=== PATIENT | female | born 2000 | race Caucasian/White ===

== ENCOUNTER 2023-04-14 22:42 | Observation (INO) ==
[2023-04-14 23:15] LABS: Basophils # (auto) 0.03 K/uL (0.00-0.20); Basophils % (auto) 0.2 %; Eosinophils # (auto) 0.01 K/uL (0.00-0.50); Eosinophils % (auto) 0.1 %; Hemoglobin 11.3 g/dl (12.0-16.0); Immature Granulocytes # (auto) 0.07 K/uL (0.01-0.20); Immature Granulocytes % (auto) 0.4 %; Lymphocytes # (auto) 1.78 K/uL (1.20-3.40); Lymphocytes % (auto) 11.4 %; Mean Corpuscular Hemoglobin 28.5 pg (25.0-34.0); Mean Corpuscular Hgb Conc 33.2 g/dL (32.0-36.0); Mean Corpuscular Volume 85.9 fL (80.0-100.0); Mean Platelet Volume 9.7 fL (9.4-12.4); Monocytes # (auto) 0.42 K/uL (0.11-0.59); Monocytes % (auto) 2.7 %; Neutrophils # (auto) 13.28 K/uL (1.40-6.50); Neutrophils % (auto) 85.2 %; Platelet Count 295 K/uL (130-400); Red Blood Count 3.96 M/uL (4.20-5.40); White Blood Count 15.59 K/ul (4.8-10.8)
[2023-04-14 23:24] LABS: Pregnancy Test, Serum Positive (Negative)
[2023-04-14 23:26] LABS: Albumin Globulin Ratio 1.3 (0.9-2); Albumin Level 3.8 gm/dl (3.4-5.0); BUN Creatinine Ratio 16.9 (10-20); Bilirubin,Total 0.4 mg/dl (0.2-1.0); Calcium 8.7 mg/dl (8.6-10.3); Creatinine Clr Calc Pharmacy 147.1 ml/min; Est GFR (African American) 114.4 ml/min; Est GFR (Non-African American) 98.7 ml/min; Potassium 4.8 mmol/L (3.5-5.1); Total Protein 6.8 gm/dl (6.0-8.3)
[2023-04-14] MEDS ORDERED: HYDROmorphone INJ 0.5 MG/0.5 ML SYR IV STA (23:50)
[2023-04-14] MEDS ORDERED: ONDANSETRON INJ 2 MG/ML 2 ML VIAL IV STA (23:50)
[2023-04-15] MEDS ORDERED: HYDROmorphone INJ 0.5 MG/0.5 ML SYR IV STA (00:17)
--- NOTE | 2023-04-15 00:17 | OB/GYN Consultation ---
Date of Consultation April 15, 2023 Assessment & Plan (1) Hemoperitoneum: (2) of unknown anatomic location: Plan This pt with early and hematoperitoneum either from ruptured ectopic or hemorrhagic cyst. I was present during u/s and significant blood in abdomen but unclear ongoing as cannot see extravasation by doppler. Left ovary with cystic structure measuring 3 x 3cm, no contents and no blood supply suggestive of ectopic. Our hcg on repeat here 2290. Desired . Discussed with patient OR now to evacuate blood, evaluate for ongoing bleeding, could disrupt normal and/or exposure to general anesthesia vs. trending sx and hgb and see evaluate ongoing. She is reluctant to proceed to surgery. She is tolerating her pain with pain meds. She does not want to go to OR if she doesn't need to but expressed need for OR may be acute/emergency. I am awaiting repeat hgb now by istat and will continue to discuss with pt. Keep npo, ivf, pain meds. History of Present Illness Reason for Consultation: , pelvic pain, hematoperitoneum Requesting Physician: Dr. Vázquez History of Present Illness 22yo with cc of acute onset pelvic pain this pm and +HPT. Patient presented to [facility] ER at about 7pm after acute onset pelvic pain, rectal pressure at 6pm. She did have a known positive test and quant done at their facility as well as u/s of pelvic showing no iup, right ovary not seen, left ovary enlarged with evidence of echogenic fluid in [place]. I was initially called by the ER physician and ultimately told that he stated the HCG at their facility was 20,000. An ER to ER transfer was arranged and on her arrival here, my review of records showed quant was 1894. I did also review the US report, which mentioned possible ruptured hemorrhagic cyst. Patient is in pain in ER bed, notes pain med given at other ER has worn off and feels like she could pass out. Has not been up to void but does feel pain with movement. Denies cp or sob. No n/v. Asking to eat/drink. PMH: hypothyroid PSH: neg OBH: x 1 2020 GYNH: nl pap 2022. no stds. Allergies Allergy/AdvReac Type Severity Reaction Status Date / Time nickel Allergy Intermediate Hives Verified 01/16/23 15:57 Sulfa (Sulfonamide Allergy Intermediate Hives Verified 01/16/23 15:57 Antibiotics) peanuts Allergy Severe Anaphylaxis Uncoded 01/16/23 15:57 Home Medications Medication Instructions Recorded Confirmed Type levothyroxine [Synthroid] 125 mcg PO DAILY 07/23/22 01/16/23 History montelukast [Singulair] 10 mg PO DAILY 07/23/22 01/16/23 History prenat.vits,shravan,isj-igye-elrml PO 07/23/22 01/16/23 History Patient History Surgical History (Updated 04/15/23 @ 00:19 by Alyssa Llanes MD, FACOG) S/P tonsillectomy and adenoidectomy S/P wisdom tooth extraction Family History (Updated 07/23/22 @ 13:20 by Anusha Win LPN) Grandfather (Maternal) Myocardial infarction Grandfather (Paternal) Prostate cancer Denies family history of Ovarian cancer Breast cancer Colorectal cancer Social History (Updated 07/23/22 @ 13:20 by Anusha Win LPN) Smoking Status: Never smoker Second Hand Exposure: No; Do You Dip or Chew Tobacco: No; Hx Alcohol Use: Yes Alcohol type: beer and wine Alcohol Intake Frequency: Monthly or Less Hx Substance Use: No Preferred Language: Macanese marital status: Current Living Situation: Spouse How many Children do You have: 1 Feels Safe at Home: Yes Review of Systems Constitutional: as per Subjective / HPI Physical Exam Constitutional: WD/WN, vitals as above Gastrointestinal (Abdomen): Percussion/Palpation: + abdomen tender, + guarding and abdomen soft Neurologic: grossly normal Psychiatric: A+Ox3, euthymic affect Genitourinary: no CVA tenderness Results & Data Vital Signs (Past 12 Hours) Vital Signs Temp Pulse Pulse Resp BP BP Pulse Ox 04/14/23 22:52 109 H 04/14/23 22:49 98.4 F 107 H 20 143/92 H 97 04/14/23 22:49 98.4 F 105 H 20 143/92 H 96 O2 Del Method 04/14/23 22:52 04/14/23 22:49 Room Air 04/14/23 22:49 Room Air PG Care Time/CCT Total # of Minutes Spent Total Time Spent with Patient: Total time spent is greater than 50% in coordination of care (as documented) at patient's floor/unit and/or counseling patient: Coding Level of Care Code 19390 OFFICE CONSULT LVL Diagnoses Hemoperitoneum K66.1 of unknown anatomic location O36.80X0
--- NOTE | 2023-04-15 00:51 | Emergency Department Note ---
Impression & Plan Hemoperitoneum, of unknown anatomic location to the OR with Dr. Llanes ED Provider Note NAME: KENNEDY ANTONIO AGE: 22 SEX: Female INFORMANT: Patient ED PROVIDER(S): Brittany Vázquez DO CHIEF COMPLAINT: Abdominal pain PLAN: Disposition: Admission by Dr. Llanes-SHELTER MONITOR - To the OR MEDICAL DECISION MAKING: This is a 22-year-old female patient who was transferred to this emergency department from [facility] for evaluation by OB for ectopic . This is the patient's second . Her last menstrual period started on 03/19/2023. Her 2 menstrual cycles prior to that were irregular. The ultrasound that was performed at [facility] showed moderate hemoperitoneum and there was concern for ectopic . It was reported to us that her quantitative hCG was greater than 20,000. She was excepted here in the emergency department and will be evaluated by weatherization installer.. Upon arrival here in the ER, the patient was hemodynamically stable. In reviewing her records, it was noted that her quantitative level was only 1864. We performed our own stat level as well as her own stat ultrasound. We question whether this could be hemorrhagic cyst versus ectopic . Regardless, the patient had moderate to significant hemoperitoneum and her hemoglobin level had dropped. Ultimately the decision was to take the patient to the OR by Dr. Llanes. Patient remained hemodynamically stable. She received 2 doses of IV Dilaudid for pain management. She was typed and screened for the OR. Care/management discussed with: Dr. Llanes-SHELTER MONITOR; I discussed the ultrasound results with the stat rad radiologist Triage Nursing notes: Reviewed and agree with them. Vital Signs: reviewed and remarkable for tachycardia Additional History obtained from: and parents who are at the bedside Prior/ Outside/ External records reviewed: Documentation from the ER visit at [facility] was reviewed-ER note, labs, ultrasound report Differential Diagnosis: Ruptured ectopic , ruptured ovarian cyst, anemia Diagnostics, independently interpreted by me: Cardiac Monitoring: Sinus tachycardia at a rate of 102 Imaging studies: Pelvic ultrasound: As per stat read HPI: 22 year old Female arrives for evaluation of ectopic . Patient developed severe pelvic pain at 6 PM this evening which she described as " lightening crotch." The patient initially went to [facility] where she was evaluated and diagnosed with an ectopic . Arrangements were made to have the patient transferred to our emergency department for weatherization installer evaluation and surgical intervention. Of note, the patient suffered a syncopal event while at [place] following her pelvic ultrasound. The patient's hemoglobin at [place] was 12.4. They did note that her blood type was O+. When arrangements were made for transfer, the transferring physician noted the patient's quantitative hCG was greater than 20,000 and therefore the patient's hemoperitoneum in of unknown anatomic location was concerning for an ectopic. However, upon arrival here in the emergency department in reviewing the records, the quantitative hCG from [place] was 1864. PAST MEDICAL history: Hypothyroidism; asthma PAST SURGICAL HISTORY: See Below, SOCIAL HISTORY: Patient is a wound care nurse; she lives with her and child, HOME MEDICATIONS: See list ALLERGIES: See list VITALS: See Below PHYSICAL EXAMINATION: HEENT: Head - normocephalic and atraumatic Pupils are equal, round, and reactive to light. Extraocular eye muscles are intact, and sclera are anicteric. Nose - moist nasal mucosa without discharge. Mouth - moist buccal mucosa. Oropharynx is nonerythematous and there is no tonsillar exudate or edema noted. Neck: Supple; no cervical lymphadenopathy and thyromegaly Heart: Regular rate and rhythm. There is a normal S1 and S2 with no murmurs, clicks, or gallops appreciated. Lungs: Clear to auscultation bilaterally with no wheezes, rales, or rhonchi. Abdomen: Soft, diffuse tenderness with palpation and mildly distended, with good bowel sounds. There are no palpable pulsatile masses or hepatosplenomegaly. There is no guarding, rigidity, or rebound noted. Extremities: No evidence of cyanosis, clubbing, or edema. There are easily palpable peripheral pulses. Skin: Pale, warm and dry with good turgor and no rashes. Emergency department treatment: IV Dilaudid x 2 Emergency department course: The patient was evaluated in room B-11. A complete history and physical was performed. Records from [place] were reviewed. Laboratory studies were drawn as above. Patient's hemoglobin dropped to 11.3 initially here in the emergency department. I discussed the case with Dr. Llanes and she requested the patient have a stat quantitative hCG and an ultrasound here. Patient was given a dose of IV Dilaudid for her pain. She evaluated the patient here and sent her for ultrasound. The quantitative value here was 2294. In reviewing the records, it was noted the patient's blood type was O+. She did have a mild leukocytosis with a white count of 15.5 and her glucose was 151. Upon returning from radiology, She was medicated with a second dose of IV Dilaudid for pain. The decision was made that the patient will go to the OR with Dr. Llanes. Past Med/Surg History Surgical History (Updated 04/15/23 @ 05:12 by Alyssa Llanes MD, FACOG) History of unilateral salpingectomy right, ectopic S/P tonsillectomy and adenoidectomy S/P wisdom tooth extraction Family History (Updated 07/23/22 @ 13:20 by Anusha Win LPN) Grandfather (Maternal) Myocardial infarction Grandfather (Paternal) Prostate cancer Denies family history of Ovarian cancer Breast cancer Colorectal cancer Social History (Updated 07/23/22 @ 13:20 by Anusha Win LPN) Smoking Status: Never smoker Second Hand Exposure: No; Do You Dip or Chew Tobacco: No; Hx Alcohol Use: Yes Alcohol type: beer and wine Alcohol Intake Frequency: Monthly or Less Hx Substance Use: No Preferred Language: Nepalese marital status: Current Living Situation: Spouse How many Children do You have: 1 Feels Safe at Home: Yes Allergies Allergies Allergy/AdvReac Type Severity Reaction Status Date / Time peanut Allergy Severe Anaphylaxis Verified 04/15/23 02:05 nickel Allergy Intermediate Hives Verified 01/16/23 15:57 Sulfa (Sulfonamide Allergy Intermediate Hives Verified 01/16/23 15:57 Antibiotics) Home Meds Home Medications Medication Instructions Recorded Confirmed levothyroxine [Synthroid] 125 mcg PO DAILY 07/23/22 01/16/23 montelukast [Singulair] 10 mg PO DAILY 07/23/22 01/16/23 prenat.vits,shravan,[id number] PO 07/23/22 01/16/23 Previous Rx's Medication Instructions Recorded oxycodone-acetaminophen 5 mg-325 1 tab PO Q4H PRN pain #7 tabs 04/15/23 mg tablet (Percocet) Results & Data (ED) Vital Signs Vital Signs - 24 hr 04/14/23 22:49 04/14/23 22:49 04/14/23 22:52 Temperature 36.9 C 36.9 C Temperature Source Oral Oral Pulse Rate 105 H 109 H Pulse Rate [Finger] 107 H Pulse Rhythm Regular Pulse Rhythm [Finger] Regular Pulse Strength Normal Pulse Strength [Finger] Normal Respiratory Rate 20 20 Respiratory Effort / Characteristics Non-Labored Spontaneous Non-Labored Spontaneous Respiratory Depth Normal Normal Respiratory Pattern Blood Pressure 143/92 H Blood Pressure [Right Arm] 143/92 H Blood Pressure Mean 109 Blood Pressure Mean [Right Arm] 109 Blood Pressure Position Sitting Blood Pressure Position [Right Arm] Sitting Pulse Oximetry 96 97 Oxygen Delivery Method Room Air Room Air Sepsis Recent Fever Within 48 Hours No Sepsis New/Unexplained Change in Mental Status N/A Sepsis Action Taken by Nursing No Action Required 04/15/23 00:11 04/15/23 02:01 04/15/23 02:02 Temperature Temperature Source Pulse Rate Pulse Rate [Finger] 100 H 120 H 120 H Pulse Rhythm Pulse Rhythm [Finger] Pulse Strength Pulse Strength [Finger] Respiratory Rate 33 H 17 17 Respiratory Effort / Characteristics Non-Labored Spontaneous Non-Labored Spontaneous Respiratory Depth Normal Normal Respiratory Pattern Regular Regular Blood Pressure Blood Pressure [Right Arm] 103/72 139/76 139/76 Blood Pressure Mean Blood Pressure Mean [Right Arm] 82 97 97 Blood Pressure Position Blood Pressure Position [Right Arm] Pulse Oximetry 97 98 98 Oxygen Delivery Method Room Air Room Air Room Air Sepsis Recent Fever Within 48 Hours Sepsis New/Unexplained Change in Mental Status Sepsis Action Taken by Nursing 04/15/23 04:35 04/15/23 04:45 04/15/23 04:55 Temperature 36.1 C L 36.2 C L 36.2 C L Temperature Source Temporal Artery Scan Temporal Artery Scan Temporal Artery Scan Pulse Rate Pulse Rate [Finger] 100 H 91 H 93 H Pulse Rhythm Pulse Rhythm [Finger] Pulse Strength Pulse Strength [Finger] Respiratory Rate 18 16 16 Respiratory Effort / Characteristics Respiratory Depth Respiratory Pattern Blood Pressure Blood Pressure [Right Arm] 128/79 120/79 103/68 Blood Pressure Mean Blood Pressure Mean [Right Arm] 95 92 79 Blood Pressure Position Blood Pressure Position [Right Arm] Lying Lying Lying Pulse Oximetry 100 99 99 Oxygen Delivery Method Room Air Room Air Room Air Sepsis Recent Fever Within 48 Hours Sepsis New/Unexplained Change in Mental Status Sepsis Action Taken by Nursing 04/15/23 05:05 Temperature 36.2 C L Temperature Source Temporal Artery Scan Pulse Rate Pulse Rate [Finger] 92 H Pulse Rhythm Pulse Rhythm [Finger] Pulse Strength Pulse Strength [Finger] Respiratory Rate 16 Respiratory Effort / Characteristics Respiratory Depth Respiratory Pattern Blood Pressure Blood Pressure [Right Arm] 109/67 Blood Pressure Mean Blood Pressure Mean [Right Arm] 81 Blood Pressure Position Blood Pressure Position [Right Arm] Lying Pulse Oximetry 99 Oxygen Delivery Method Room Air Sepsis Recent Fever Within 48 Hours Sepsis New/Unexplained Change in Mental Status Sepsis Action Taken by Nursing Laboratory Data 04/14/23 22:59 04/14/23 22:59 Lab Results 04/14/23 04/15/23 Range/Units 22:59 01:26 WBC 15.59 H (4.8-10.8) K/ul RBC 3.96 L (4.20-5.40) M/uL Hgb 11.3 L (12.0-16.0) g/dl Hct 34.0 L (37.0-47.0) % MCV 85.9 (80.0-100.0) fL MCH 28.5 (25.0-34.0) pg MCHC 33.2 (32.0-36.0) g/dL RDW Std Deviation 38.0 (36.4-46.3) fL RDW Coeff of Angela 12.0 (11.5-14.5) % Plt Count 295 (130-400) K/uL MPV 9.7 (9.4-12.4) fL Immature Gran % (Auto) 0.4 % Neut % (Auto) 85.2 % Lymph % (Auto) 11.4 % [place] % (Auto) 2.7 % Eos % (Auto) 0.1 % Baso % (Auto) 0.2 % Neut # (Auto) 13.28 H (1.40-6.50) K/uL Lymph # (Auto) 1.78 (1.20-3.40) K/uL [place] # (Auto) 0.42 (0.11-0.59) K/uL Eos # (Auto) 0.01 (0.00-0.50) K/uL Baso # (Auto) 0.03 (0.00-0.20) K/uL Immature Gran # (Auto) 0.07 (0.01-0.20) K/uL Sodium 136 (136-145) mmol/L Potassium 4.8 (3.5-5.1) mmol/L Chloride 107 (98-107) mmol/L Carbon Dioxide 22 (21-32) mmol/L Anion Gap 7 (3-11) BUN 14 (6-23) mg/dl Creatinine 0.83 (0.6-1.2) mg/dl Est Cr Clr Drug Dosing 147.1 ml/min Est GFR ( Amer) 114.4 ml/min Est GFR (Non-Af Amer) 98.7 ml/min BUN/Creatinine Ratio 16.9 (10-20) Glucose 151 H (70-99(Fasting)) mg/dl Calcium 8.7 (8.6-10.3) mg/dl Total Bilirubin 0.4 (0.2-1.0) mg/dl AST 13 (13-39) U/L ALT 17 (7-52) U/L Alkaline Phosphatase 67 (34-104) U/L Total Protein 6.8 (6.0-8.3) gm/dl Albumin 3.8 (3.4-5.0) gm/dl Globulin 3.0 (2.5-4.0) gm/dl Albumin/Globulin Ratio 1.3 (0.9-2) Lipase 9 L (11-82) U/L HCG, Qual Positive (Negative) HCG, Quant 2290 mIU/ml Urine Color Dark Yellow Urine Appearance Turbid A (Clear) Urine pH 5.5 (4.5-7.5) Ur Specific [place] 1.036 H (1.000-1.030) Urine Protein 1+ H (Negative) Urine Glucose (UA) Negative (Negative) Urine Ketones Trace H (Negative) Urine Blood 2+ H (Negative) Urine Nitrite Negative (Negative) Urine Bilirubin 1+ H (Negative) Urine Urobilinogen Negative (Negative) Ur Leukocyte Esterase Trace H (Negative) Urine WBC (Auto) 10-30 H (0-5) /hpf Urine RBC (Auto) 5-10 H (0-4) /hpf U Hyaline Cast (Auto) 0 (0-5) /lpf U Epithel Cells (Auto) >30 H (0-5) /lpf Urine Bacteria (Auto) 1+ H (Negative) Ur Renal Epithelial Cell Not Reportable Urine Mucus Present A (None Prsent) Blood Type O Positive Antibody Screen NEGATIVE Administered Medications Fentanyl Citrate (Fentanyl Citrate Pf 100 Mcg/2 Ml Vial) 50 mcg IV Q5M PRN PRN Reason: PACU Use Only-Pain Stop: 04/15/23 10:43 Last Admin: 04/15/23 05:27 Dose: 50 mcg Documented By: VK Discontinued Medications Bupivacaine HCl (Bupivacaine 0.5 % 5 Mg/1 Ml Mpf 30ml Vial) Confirm Administered Dose 30 ml .ROUTE .STK-MED ONE Stop: 04/15/23 02:26 Last Admin: 04/15/23 04:27 Dose: 10 ml Documented By: SMP Hydromorphone HCl (Hydromorphone Inj 0.5 Mg/0.5 Ml Syr) 0.5 mg IV NOW STA Stop: 04/14/23 23:51 Last Admin: 04/14/23 23:56 Dose: 0.5 mg Documented By: MED Hydromorphone HCl (Hydromorphone Inj 0.5 Mg/0.5 Ml Syr) 0.5 mg IV NOW STA Stop: 04/15/23 00:18 Last Admin: 04/15/23 00:19 Dose: 0.5 mg Documented By: MED Ondansetron HCl (Ondansetron Inj 2 Mg/Ml 2 Ml Vial) 4 mg IV NOW STA Stop: 04/14/23 23:51 Last Admin: 04/14/23 23:53 Dose: 4 mg Documented By: MED Imaging Data Radiologist's Impression: Ultrasound 04/14/23 23:47 CR Exam(s): US OB 1st TRIMESTER EXAM: US First Trimester , Transabdominal and Transvaginal CLINICAL HISTORY: pelvic pain, +HCG 1894. TECHNIQUE: Real-time transabdominal and transvaginal obstetrical ultrasound of the maternal pelvis and a first trimester with image documentation. Transvaginal imaging was used for better evaluation of the fetus and adnexa. COMPARISON: No relevant prior studies available. FINDINGS: Gestation: The endometrial stripe measures only 4.6 mm. No intrauterine gestation identified. Placenta/amniotic fluid: Cannot be adequately evaluated due to the early gestational age. Uterus/cervix: The cervix is closed. No myometrial mass. Ovaries: The right ovary measures 2.6 x 2.5 x 1.8 cm. The left ovary measures 4.8 x 4.3 x 3.4 cm with a complex cyst measuring 3.4 x 3.9 x 3.1 cm with low-level echoes and septations. Free fluid: Moderate complex fluid in the pelvis with echogenic components. There is also free fluid in Morison's pouch. IMPRESSION: 1. The endometrial stripe measures only 4.6 mm. No intrauterine gestation identified. This may be related to very early gestational status given reported beta-hCG levels. 2. Moderate complex fluid in the pelvis with echogenic components. There is also free fluid in Morison's pouch. Findings are concerning for mild to moderate hemoperitoneum. Recommend gynecologic consultation rather than additional imaging if there is concern for impending hemodynamic instability. 3. The left ovary measures 4.8 x 4.3 x 3.4 cm with a complex cyst measuring 3.4 x 3.9 x 3.1 cm with low-level echoes and septations. Findings are most consistent with a hemorrhagic cyst. Communications: Call Doctor Above results Electronically signed by: Tong De La Rosa MD 04/15/23 01:43 AM Discharge Plan Visit Data Chief Complaint: Pelvic Pain Stated Complaint: Ruptured Ectopic ED Provider: Brittany Vázquez Discharge Problem: Hemoperitoneum, of unknown anatomic location Patient Disposition: Admitted As Inpatient Discharge Instructions Interventions: ED Discharge Assessment Last Done: 04/15/23 02:25
[2023-04-15 01:40] LABS: Appearance Urine Turbid (Clear); Bacteria Urine Automated 1+ (Negative); Blood Urine 2+ (Negative); Color Urine Dark Yellow; Epithelial Cell Urine Auto >30 /lpf (0-5); Glucose Urine UA Negative (Negative); Ketones Urine Trace (Negative); Leukocyte Esterase Urine Trace (Negative); Nitrite Urine Negative (Negative); Protein Urine 1+ (Negative); Specific Gravity Urine 1.036 (1.000-1.030); Urobilinogen Urine Negative (Negative); pH Urine 5.5 (4.5-7.5)
[2023-04-15 01:42] LABS: Bilirubin Urine 1+ (Negative)
--- NOTE | 2023-04-15 01:45 | Ultrasound Report ---
Exam(s): US OB 1st TRIMESTER EXAM: US First Trimester , Transabdominal and Transvaginal CLINICAL HISTORY: pelvic pain, +HCG 1894. TECHNIQUE: Real-time transabdominal and transvaginal obstetrical ultrasound of the maternal pelvis and a first trimester with image documentation. Transvaginal imaging was used for better evaluation of the fetus and adnexa. COMPARISON: No relevant prior studies available. FINDINGS: Gestation: The endometrial stripe measures only 4.6 mm. No intrauterine gestation identified. Placenta/amniotic fluid: Cannot be adequately evaluated due to the early gestational age. Uterus/cervix: The cervix is closed. No myometrial mass. Ovaries: The right ovary measures 2.6 x 2.5 x 1.8 cm. The left ovary measures 4.8 x 4.3 x 3.4 cm with a complex cyst measuring 3.4 x 3.9 x 3.1 cm with low-level echoes and septations. Free fluid: Moderate complex fluid in the pelvis with echogenic components. There is also free fluid in Morison's pouch. IMPRESSION: 1. The endometrial stripe measures only 4.6 mm. No intrauterine gestation identified. This may be related to very early gestational status given reported beta-hCG levels. 2. Moderate complex fluid in the pelvis with echogenic components. There is also free fluid in Morison's pouch. Findings are concerning for mild to moderate hemoperitoneum. Recommend gynecologic consultation rather than additional imaging if there is concern for impending hemodynamic instability. 3. The left ovary measures 4.8 x 4.3 x 3.4 cm with a complex cyst measuring 3.4 x 3.9 x 3.1 cm with low-level echoes and septations. Findings are most consistent with a hemorrhagic cyst. Communications: Call Doctor Above results Electronically signed by: Tong De La Rosa MD 04/15/23 01:43 AM
[2023-04-15 01:50] LABS: Cast Urine Automated 0 /lpf (0-5); Mucus Urine Present (None Prsent)
--- NOTE | 2023-04-15 02:07 | Gynecologic Progress Note ---
Date of Service April 15, 2023 Assessment & Plan (1) Acute anemia: (2) Hemoperitoneum: (3) of unknown anatomic location: Plan given decreased hemoglobin and obvious hematoperitoneum, rec to pt proceeding with lpsc evaluation and evacuation of hemoperitoneum. Possible need to manage bleeding of adnexal structures including removal of structures that can effect future fertility. Possible leaving of structures that ultimately need to come out like true ectopic . But for now need to manage possible ongoing bleeding as her hemoglobin is decreasing acutely. They agree and are ready to proceed, she is aware she may lose iup if structures disrupted and/or early surgery. Option to allow ongoing bleeding unmanaged is also not tenable. Risks, alternatives and complications of procedure reviewed with patient and include but are not limited to bleeding, infection, anesthesia, injury to bowel, bladder, vessels, nerves, ureters, delayed complication, persistent ectopic with further need for treatment or procedures, loss of normal , loss or decrease of fertility. Patient desires to proceed and consent signed. Nurse supervisor laboratory animal facility and anesthesia aware of plan and OR called. Plan operative LPSC, evacuation of hemoperitoneum and possible removal of adnexal stuctures. Subjective pt still with pain, mostly with movement. US reviewed again with her and partner and mother. istat now about 2gm lower in about 2hr. Review of Systems Constitutional: as per Subjective / HPI Physical Exam Constitutional: WD/WN, vitals as above Results & Data Vital Signs (Past 12 Hours) Vital Signs Temp Pulse Pulse Resp BP BP Pulse Ox 04/15/23 00:11 100 H 33 H 103/72 97 04/14/23 22:52 109 H 04/14/23 22:49 98.4 F 107 H 20 143/92 H 97 04/14/23 22:49 98.4 F 105 H 20 143/92 H 96 O2 Del Method 04/15/23 00:11 Room Air 04/14/23 22:52 04/14/23 22:49 Room Air 04/14/23 22:49 Room Air PG Care Time/CCT Total # of Minutes Spent Total Time Spent with Patient: Total time spent is greater than 50% in coordination of care (as documented) at patient's floor/unit and/or counseling patient: Coding Level of Care Code 80987 ER DEPT VISIT HIGH LVL 5 (57 - DECISION FOR SURGERY) Diagnoses Acute anemia D64.9 Hemoperitoneum K66.1 of unknown anatomic location O36.80X0
[2023-04-15] MEDS ORDERED: BUPIVACAINE 0.5 % 5 MG/1 ML MPF 30ML VIAL ONE (02:25)
[2023-04-15] MEDS ORDERED: fentaNYL citrate PF 100 MCG/2 ML VIAL ONE ×2 (02:29→05:24)
[2023-04-15] MEDS ORDERED: PROPOFOL IV EMULSION 10 MG/ML 20 ML VIAL IV ONE (02:30)
[2023-04-15] MEDS ORDERED: SUCCINYLCHOLINE CHLORIDE 20 MG/ML 10 ML VIAL IV ONE (02:30)
[2023-04-15] MEDS ORDERED: ROCURONIUM BROMIDE 10 MG/ML 5 ML VIAL IV ONE (02:30)
[2023-04-15] MEDS ORDERED: LIDOCAINE 2% 2 ML VIAL/AMP(20MG/ML) INFIL ONE (02:30)
[2023-04-15] MEDS ORDERED: ONDANSETRON INJ 2 MG/ML 2 ML VIAL IV PRN (02:43)
[2023-04-15] MEDS ORDERED: PROMETHAZINE HCL 6.25 MG in SODIUM CHLORIDE 0.9% 50 ML IV PRN (02:43)
[2023-04-15] MEDS ORDERED: ePHEDrine sulfate 50 MG/ML AMP IV PRN (02:43)
[2023-04-15] MEDS ORDERED: ATROPINE SULFATE 0.1 MG/ML 10ML SYR IV PRN (02:43)
[2023-04-15] MEDS ORDERED: fentaNYL citrate PF 100 MCG/2 ML VIAL IV PRN (02:43)
--- NOTE | 2023-04-15 02:43 | Anesthesiology Consultation ---
Date of Service April 15, 2023 Assessment & Plan Chart Review Chart Review: Acceptable Risk for Surgery and Patient NOT seen in Pre Admission Testing Consults Requested none ASA [id number] Proposed Anesthesia Anesthesia Type: General Risk / Benefits Reviewed With: PT / POA / Parent / Guardian, Accepts Plan and Informed Consent Obtained History Surgery Operation Date: 04/15/23 03:00 Proposed Procedures p Laparoscopic Ectopic - Alyssa Llanes MD, FACOG Height/Weight Height: 5 ft 8 in Weight: 127 kg Allergies Allergy/AdvReac Type Severity Reaction Status Date / Time peanut Allergy Severe Anaphylaxis Verified 04/15/23 02:05 nickel Allergy Intermediate Hives Verified 01/16/23 15:57 Sulfa (Sulfonamide Allergy Intermediate Hives Verified 01/16/23 15:57 Antibiotics) Medications Home Medications Medication Instructions Recorded Confirmed Last Taken levothyroxine [Synthroid] 125 mcg PO DAILY 07/23/22 01/16/23 Unknown montelukast [Singulair] 10 mg PO DAILY 07/23/22 01/16/23 Unknown prenat.vits,shravan,[id number] PO 07/23/22 01/16/23 Unknown Exercise / Class Metabolic Activity II 4-5 Yardwork/Stairs/Walk up hill Past Family History Family History (Updated 07/23/22 @ 13:20 by Anusha Win LPN) Grandfather (Maternal) Myocardial infarction Grandfather (Paternal) Prostate cancer Denies family history of Ovarian cancer Breast cancer Colorectal cancer Past Surgical History Surgical History (Updated 04/15/23 @ 00:19 by Alyssa Llanes MD, FACOG) S/P tonsillectomy and adenoidectomy S/P wisdom tooth extraction Past Anesthesia History No Hx of Anesthesia Complications and No Family Hx of Anesthesia Complications History of PONV No Hx of PONV and No Hx of Motion Sickness Social History Smoking Status: Never smoker Do You Dip or Chew Tobacco: No Hx Alcohol Use: Yes Alcohol type: beer and wine Hx Substance Use: No Physical Exam Vital Signs Last Vital Signs Temp 36.9 C 04/14/23 22:49 Pulse 120 H 04/15/23 02:02 Resp 17 04/15/23 02:02 BP 139/76 04/15/23 02:02 Pulse Ox 98 04/15/23 02:02 O2 Del Method Room Air 04/15/23 02:02 Constitutional + obese ENMT Mouth: no dentition abnormality Thyromental Distance: > or= 3.5 Finger Breadths Mallampati Class: II Neck normal visual inspection Respiratory normal respiratory effort Auscultation: lungs clear to auscultation bilaterally Cardiovascular Rate/Rhythm: regular rate and regular rhythm Psychiatric Orientation: alert Testing Laboratory Results 04/14/23 22:59 04/14/23 22:59 HCG, Quant 2290 mIU/ml 04/14/23 22:59 Urine Color Dark Yellow 04/15/23 01:26 Urine Appearance Turbid (Clear) A 04/15/23 01:26 Urine pH 5.5 (4.5-7.5) 04/15/23 01:26 Ur Specific [place] 1.036 (1.000-1.030) H 04/15/23 01:26 Urine Protein 1+ (Negative) H 04/15/23 01:26 Urine Glucose (UA) Negative (Negative) 04/15/23 01:26 Urine Ketones Trace (Negative) H 04/15/23 01:26 Urine Nitrite Negative (Negative) 04/15/23 01:26 Ur Leukocyte Esterase Trace (Negative) H 04/15/23 01:26 Urine WBC (Auto) 10-30 /hpf (0-5) H 04/15/23 01:26 Urine RBC (Auto) 5-10 /hpf (0-4) H 04/15/23 01:26 U Hyaline Cast (Auto) 0 /lpf (0-5) 04/15/23 01:26 U Epithel Cells (Auto) >30 /lpf (0-5) H 04/15/23 01:26 Urine Bacteria (Auto) 1+ (Negative) H 04/15/23 01:26 Blood Type O Positive 04/14/23 22:59 Antibody Screen NEGATIVE 04/14/23 22:59 04/14/23 22:59 HCG, Quant 2290
[2023-04-15] MEDS ORDERED: ONDANSETRON INJ 2 MG/ML 2 ML VIAL ONE (04:20)
[2023-04-15] MEDS ORDERED: DEXAMETHASONE SOD INJ 4 MG/ML VIAL ONE (04:20)
[2023-04-15] MEDS ORDERED: MoRPHine SULFATE 2 MG/ML CARP ONE (04:20)
[2023-04-15] MEDS ORDERED: GLYCOPYRROLATE 0.2 MG/ML VIAL ONE (04:23)
[2023-04-15] MEDS ORDERED: NEOSTIGMINE METHYLSULFATE 1 MG/ML 10ML VIAL ONE (04:23)
--- NOTE | 2023-04-15 04:34 | Post Operative Brief Note ---
PG Immediate Post Op with CF Date of Surgery April 15, 2023 Pre & Post Diagnosis Operation Date: 04/15/23 03:00 Pre-Op Diagnosis: Hemoperitoneum. of Unknown Location. Post-Op Diagnosis: Ruptured right ectopic . I identified the patient and participated in the time-out.: Yes Procedure Operation Date: 04/15/23 03:00 Actual Procedures p Operative laparoscopy, evacuation hemoperitoneum, removal of right fallopian tube. - Alyssa Llanes MD, FACOG Surgeon Alyssa Llanes MD, FACOG Laceworker RN Estimated Blood Loss 600 Findings Consistent with Post-Op Diagnosis (large volume hemoperitoneum with active bleeding from ruptured right ectopic . ) Fluids 1500 Specimens Specimen Description: A. Right ectopic fallopian tube. Anesthesia Type General Complications none Disposition Accompanied Patient To Recovery: No Disposition: Recovery Room
[2023-04-15] MEDS ORDERED: oxyCODONE/ACETAMINOPHEN 5mg/325mg TAB PO PRN ×2 (04:50)
[2023-04-15] MEDS ORDERED: ACETAMINOPHEN 325 MG TAB PO PRN (04:50)
[2023-04-15] MEDS ORDERED: IBUPROFEN 600 MG TAB PO PRN (04:50)
[2023-04-15] MEDS ORDERED: KETOROLAC 30 MG/ML VIAL IV PRN (04:50)
--- NOTE | 2023-04-15 04:51 | Anesthesiology Progress Note ---
Date of Service April 15, 2023 Anesthesia Post Procedure Vital Signs Vital Signs: Temp Pulse Pulse Resp BP BP Pulse Ox 04/15/23 04:35 36.1 C L 100 H 18 128/79 100 04/15/23 02:02 120 H 17 139/76 98 04/15/23 02:01 120 H 17 139/76 98 04/15/23 00:11 100 H 33 H 103/72 97 04/14/23 22:52 109 H 04/14/23 22:49 36.9 C 107 H 20 143/92 H 97 04/14/23 22:49 36.9 C 105 H 20 143/92 H 96 O2 Del Method 04/15/23 04:35 Room Air 04/15/23 02:02 Room Air 04/15/23 02:01 Room Air 04/15/23 00:11 Room Air 04/14/23 22:52 04/14/23 22:49 Room Air 04/14/23 22:49 Room Air Pain Intensity Generalized: Pain Intensity: 6 Transfer of Care Handoff Completed per policy Notes Mental Status: alert / awake / arousable Patient Amnestic to Procedure: Yes Nausea / Vomiting: adequately controlled Pain: adequately controlled Airway Patency, RR, SpO2: stable & adequate BP & HR: stable & adequate Hydration State: stable & adequate Anesthetic Complications: no major complications apparent
[2023-04-15] MEDS ORDERED: LACTATED RINGER'S 1,000 ML IV SCH ×2 (05:00→06:00)
--- NOTE | 2023-04-15 05:06 | Operative Report ---
PG Post Operative Report Pre & Post Diagnosis Operation Date: 04/15/23 03:00 Pre-Op Diagnosis: Hemoperitoneum, Acute anemia, of unknown location. Post-Op Diagnosis: Ruptured right ectopic . I identified the patient and participated in the time-out.: Yes Procedure Operation Date: 04/15/23 03:00 Actual Procedures p Operative laparoscopy, evacutation hemoperitoneum, right salpingectomy/removal ectopic . - Alyssa Llanes MD, FACOG Surgeon Alyssa Llanes MD, FACOG Bank Reconciliator RN Estimated Blood Loss 600 Findings Consistent with Post-Op Diagnosis (large volume hemoperitoneum with active bleeding from ruptured right ectopic . ) Fluids 1500 Specimens right fallopian tube with ectopic Drains none Anesthesia Type General Complications none Disposition Accompanied Patient To Recovery: No Disposition: Recovery Room Indications 22yo with cc of severe pelvic pain, hemoperitoneum, acute anemia and of unknown anatomic location for planned laparoscopic evaluation. Description of Procedure The patient was taken to the operating room and identified. After adequate general anesthesia was obtained she was placed in the dorsolithotomy position and prepped and draped in the usual sterile fashion. Attention was turned to the patient's vagina where a Lang catheter was placed with drainage of clear yellow urine. A moistened sponge stick was placed in vagina. Attention was then turned to the patient's abdomen. An supraumbilical skin incision was made with a scalpel. The Veress needle was placed intraperitoneally with an opening pressure of 6 mmHg. A CO2 pneumoperitoneum was created. The 10 mm optical trocar was placed intraperitoneally under direct visualization. A large amount of clotted blood was encountered. An additional 10mm trocar site was placed left of the midline by first creating a skin incision and then placing under direct visualization a 10mm trocar. This allowed the Florence suction to be used at both sites to begin to evacuate the large hematoma. The patient was placed in steep Trendelenburg with further evacuation of the blood and clot in pelvis. In order to facilitate this and evaluation of bleeding source and additional 5mm trocar site was created suprapubically under direct visualization. A atraumatic grasper was then able to elevate the uterus by holding the right round ligament. The cul-de-sac was then able to be further suctioned. By this point an enlarged left ovary was noted and sat higher in pelvis, but no active bleeding noted from this area. The right fallopian tube was elevated after obvious bulge of tissue in mid section and on underside of tube was rupture site with active bleeding noted. Attempt to suctioned out the ectopic resulted in continued bleeding at this site and therefore decision was made to resect the tube. The fallopian tube was elevated and the harmonic scalpel was used to undermine the fallopian tube from its distal end to the cornua, incorporating the bulge of the ectopic tissue. The transected tube was brought out through the left lateral trocar site to be sent as specimen. The operative site was irrigated and noted to be hemostatic. Care was then taken to position the patient in and out of [facility] in order to evacuate the blood in the abdomen. This took some time and irrigation was used as well. The left ovary was incised to decompress its size which allowed it to sit in the cul-de-sac. The operative site was reinspected and was hemostatic. The remaining fallopian tube appeared normal. There were filmy adhesions noted on right sidewall. At this point the procedure was terminated. The CO2 gas was allowed to escape from the patient's abdomen. The trocars were removed. The subcutaneous tissue was reapproximated using 0 Vicryl and the skin was closed in a subcuticular fashion using 4-0 Vicryl. The incisions were injected with Marcaine and dressed with gauze and dressings. The vaginal instrument was removed and the Lang catheter was removed. The patient was awoken from anesthesia after being returned to the supine position. She was transported to the recovery room in stable condition. All sponge lap and needle counts were correct x2. I attest to the content of the Intraoperative Record and any orders documented therein. Any exceptions are noted below. PROJECT GEOPHYSICIST Major Procedure Codes Laparotomy/Laparoscopic [address] [facility] SO part/total PROJECT GEOPHYSICIST Minor Procedure Codes Laparoscopy(ic) [address] [facility] SO part/total
[2023-04-15 06:47] LABS: Hematocrit (blood only) 28.2 % (37.0-47.0); Hemoglobin 9.1 g/dl (12.0-16.0)
[2023-04-15 07:04] LABS: iSTAT Creatinine 0.9 mg/dl (0.6-1.3); iSTAT Hemoglobin 9.9 g/dl (12.0-16.0); iSTAT Ionized Calcium 1.15 mmol/l (1.12-1.32); iSTAT Potassium 4.8 mmol/L (3.3-5.0)
--- NOTE | 2023-04-15 08:10 | Gynecologic Progress Note ---
Date of Service April 15, 2023 Assessment & Plan (1) Ectopic : (2) Acute anemia: (3) Hemoperitoneum: Plan stable, hgb noted. adv diet, ambulate, await void. reeval midday for likely dc home. scripts sent, checked on papdmp. no issues. plan quant on thursday. postop i n 2wks. instructions/limitations reviewed. Admission and Anticipated Discharge Date Admission Date: April 15, 2023 Subjective doing ok this am, alot of gas pain and shoulder pain. feels better as far as pelvic pain. aware of findings at surgery. no cp or sob, no n/v. emilee po fluids. pain manageable. hgb this am 9.1 Review of Systems Constitutional: as per Subjective / HPI Physical Exam Constitutional: WD/WN, vitals as above (sitting by bedside. ) Respiratory: normal respiratory effort, lungs clear to auscultation Cardiovascular: Rate/Rhythm: regular rate and regular rhythm Gastrointestinal (Abdomen): Percussion/Palpation: abdomen soft; abdomen nontender and no guarding Musculoskeletal: nt calves no edema Neurologic: grossly normal Psychiatric: A+Ox3, euthymic affect Results & Data Vital Signs (Past 12 Hours) Vital Signs Temp Pulse Pulse Pulse Resp BP BP 04/15/23 07:20 98.4 F 98 H 20 106/74 04/15/23 06:34 102 H 20 04/15/23 06:00 98.6 F 84 84 20 04/15/23 05:05 97.2 F L 92 H 16 04/15/23 04:55 97.2 F L 93 H 16 04/15/23 04:45 97.2 F L 91 H 16 04/15/23 04:35 97.0 F L 100 H 18 04/15/23 02:02 120 H 17 04/15/23 02:01 120 H 17 04/15/23 00:11 100 H 33 H 04/14/23 22:52 109 H 04/14/23 22:49 98.4 F 107 H 20 04/14/23 22:49 98.4 F 105 H 20 143/92 H BP Pulse Ox O2 Del Method 04/15/23 07:20 96 Room Air 04/15/23 06:34 96/80 L 97 Room Air 04/15/23 06:00 106/74 04/15/23 05:05 109/67 99 Room Air 04/15/23 04:55 103/68 99 Room Air 04/15/23 04:45 120/79 99 Room Air 04/15/23 04:35 128/79 100 Room Air 04/15/23 02:02 139/76 98 Room Air 04/15/23 02:01 139/76 98 Room Air 04/15/23 00:11 103/72 97 Room Air 04/14/23 22:52 04/14/23 22:49 143/92 H 97 Room Air 04/14/23 22:49 96 Room Air PG Care Time/CCT Total # of Minutes Spent Total Time Spent with Patient: Total time spent is greater than 50% in coordination of care (as documented) at patient's floor/unit and/or counseling patient: Coding Level of Care Code 74168 Post Operative Follow-Up Diagnoses Ectopic O00.90 Acute anemia D64.9 Hemoperitoneum K66.1
--- NOTE | 2023-04-16 20:12 | Discharge Summary ---
Date of Service Date of admission and discharge: April 15, 2023 Admission HPI Per Admitting Provider 22yo with early , hemoperitoneum and worsening anemia who came to [facility] as Er transfer from [facility]. She presented there with acute pain that worsened within one hour. She had u/s there not showing iup but showing cystic structure in left adnexa and echogenic material c/w hemorrhage in her abdomen. She was in acute pain and christiana did not have providers to care for her. She had hcg 1894. This was desired . Her evaluation was repeated by me in ER [facility]. HCG 2000's and u/s with evidence of large amount of internal hemorrhage, left sided cystic structure without contents or vascularity. Right ovary normal. Uterus without gestational sac. Her hemoglobin dropped by about 2gm in about 2hr and was recommended to proceed with laparscopy as risk of internal bleeding ongoing. Unknown status of location due to hcg below discriminatory zone in some cases. She was aware of possible loss of pregnanc, see ER notes for more detail. Rh pos. Discharge Data Procedures Performed Operation Date: 04/15/23 03:00 Actual Procedures p Operative laparoscopy, evacutation hemoperitoneum, removal of right fallopian tube. - Alyssa Llanes MD, FACOG Hospital Course (1) Ectopic : (2) Acute anemia: (3) Hemoperitoneum: Plan Patient did proceed to OR as recommended and large amount of hemorrhage/clotted blood evacuated from abdomen. Her pelvis inspected resulted in discovery of right sided ruptured ectopic managed with salpingectomy. See operative note for more detail. She was kept as observation postop and hemoglobin was repeated and was stable. She met criteria for discharge and was sent home. Pain meds sent after being checked on pa pdmp. Plan was await pathology and plan serial hcgs accordingly. She was to have postop visit as well, which was scheduled. Her postop hemoglobin was 9.1. Coding Level of Care Code None Diagnoses Ectopic O00.90 Acute anemia D64.9 Hemoperitoneum K66.1
== END 2023-04-15 12:15 | disposition home or self-care (01) ==
LOC: ED 22:42 → OR 04-15 02:25 → 4E1 04-15 02:25